=== PATIENT | male | born 1995 | race Caucasian/White ===

== ENCOUNTER 2019-03-10 09:05 | Emergency (ER) | payer OTHER ==
--- NOTE | 2019-03-10 10:16 | RADIOLOGY REPORT (SQ) ---
EXAM DESCRIPTION: SHOULDER LEFT 2 OR MORE VIEWS COMPLETED DATE/TIME: 03/10/2019 10:06 am REASON FOR STUDY: anterior shoulder/chest pain after lifting COMPARISON: None. NUMBER OF VIEWS: Three views. TECHNIQUE: Internal rotation, external rotation, and Y view images acquired of the left shoulder. LIMITATIONS: None. FINDINGS: MINERALIZATION: Normal. BONES: No acute fracture or dislocation. No worrisome bone lesions. JOINTS: No dislocation. VISUALIZED LUNGS AND RIBS: No pneumothorax. No rib fracture. SOFT TISSUES: No radiopaque foreign body. OTHER: No other significant finding. IMPRESSION: NEGATIVE STUDY OF THE LEFT SHOULDER. NO RADIOGRAPHIC EVIDENCE OF ACUTE INJURY. TECHNICAL DOCUMENTATION: JOB ID: [id number] [employer]- All Rights Reserved Reading location - IP/workstation name: [email or web address]
--- NOTE | 2019-03-10 10:42 | ER Document Report ---
HPI - HPI Time Seen by Provider: 03/10/19 09:38 Pain Level: 3 Notes: Patient is an otherwise healthy 23-year-old male presenting to the emergency department with complaints of left shoulder pain radiating into his upper chest. He states the pain started after lifting 300 pounds. He states he was doing bench presses. He reports this is been going on for several days, he has tried taking Tylenol without relief. - MUSCULOSKELETAL Musculoskeletal: REPORTS: Extremity pain - left shoulder/chest Past Medical History - General Information source: Patient - Social History Smoking Status: Never Smoker Frequency of alcohol use: None Drug Abuse: None Family History: Reviewed & Not Pertinent Patient has suicidal ideation: No Patient has homicidal ideation: No - Medical History Medical History: Negative Renal/ Medical History: Denies: Hx Peritoneal Dialysis Surgical Hx: Negative - Immunizations Immunizations up to date: Yes Vertical Provider Document - CONSTITUTIONAL Notes: PHYSICAL EXAMINATION: GENERAL: Well-appearing, well-nourished and in no acute distress. HEAD: Atraumatic, normocephalic. EYES: Pupils equal round extraocular movements intact, conjunctiva are normal. ENT: Nares patent NECK: Normal range of motion LUNGS: No respiratory distress Musculoskeletal: Normal range of motion to bilateral shoulders. Tenderness to palpation over left pectoralis muscles. NEUROLOGICAL: Normal speech, normal gait. PSYCH: Normal mood, normal affect. SKIN: Warm, Dry, normal turgor, no rashes or lesions noted. - INFECTION CONTROL TRAVEL OUTSIDE OF THE [place] IN LAST 30 DAYS: No Course - Re-evaluation Re-evalutation: Shoulder x-ray is negative for any fracture or dislocation. Likely musculoskeletal strain. Patient will be started on course of muscle relaxers and encouraged to take ibuprofen. He will also be given contact information for a sports medicine physician to follow-up with if his symptoms do not improve. Patient verbalizes understanding and agreement with plan. - Vital Signs Vital signs: Temp Pulse Resp BP Pulse Ox 98.2 F 87 17 139/90 H 98 03/10/19 09:21 03/10/19 09:21 03/10/19 09:21 03/10/19 09:21 03/10/19 09:21 Discharge - Discharge Clinical Impression: Pectoralis muscle strain Qualifiers: Encounter type: initial encounter Qualified Code(s): S29.011A - Strain of muscl e and tendon of front wall of thorax, initial encounter Condition: Stable Disposition: HOME, SELF-CARE Additional Instructions: The x-ray today was negative. Please stop taking the muscle relaxer that you have at home called cyclobenzaprine. Start taking ibuprofen and Robaxin as prescribed. Continue to apply warm compresses to the area and/or massage the area with something like Aspercreme. Follow-up with a sports medicine orthopedic doctor. I have given you the name and number of 1 as outlined below. Prescriptions: Ibuprofen [Motrin 800 mg Tablet] 800 mg PO Q8H PRN #30 tab PRN Reason: Methocarbamol [Robaxin 750 mg Tablet] 750 mg PO Q4 #40 tablet Referrals: KATARZYNA WILLS MD [COMMUNITY BASED STAFF] - Follow up as needed
--- NOTE | 2019-03-10 10:51 | EKG REPORT ---
SEVERITY:- NORMAL ECG - SINUS RHYTHM : Confirmed by: Krystle Andrea MD 10-Mar-2019 10:51:03
[2019-03-10 11:14] VITALS: BP 140/89
== END 2019-03-10 11:14 | disposition home or self-care (01) ==
LOC: ER 09:05
DX: S29.011A Strain of muscle and tendon of front wall of thorax, initial encounter (principal); M25.512 Pain in left shoulder; R07.89 Other chest pain; X50.0XXA Overexertion from strenuous movement or load, initial encounter; Y93.B3 Activity, free weights
CPT/HCPCS: 93005; 93010; 99283

== ENCOUNTER 2019-07-07 22:42 | Emergency (ER) | payer OTHER ==
[2019-07-07] MEDS ORDERED: ASPIRIN 81 MG TABLET, CHEWABLE PO ONE (23:21)
[2019-07-08 00:05] LABS: ABSOLUTE EOSINOPHILS # (AUTO) 0.1 10^3/uL (0.0-0.6); ABSOLUTE LYMPHOCYTES (AUTO) 2.9 10^3/uL (0.5-4.7); ABSOLUTE MONOCYTES (AUTO) 0.8 10^3/uL (0.1-1.4); ABSOLUTE NEUT (AUTO) 4.7 10^3/uL (1.7-8.2); BASOPHILS % (AUTO) 0.5 % (0-2); EOSINOPHILS % (AUTO) 1.4 % (0-6); LYMPHOCYTES % (AUTO) 33.8 % (13-45); MEAN CORPUSCULAR HEMOGLOBIN 30.8 pg (27.0-33.4); MEAN CORPUSCULAR HGB CONC 35.8 g/dL (32.0-36.0); MEAN CORPUSCULAR VOLUME 86 fl (80-97); MONOCYTES % (AUTO) 8.9 % (3-13); PLATELET COUNT 367 10^3/uL (150-450); RED BLOOD COUNT 4.88 10^6/uL (4.35-5.55); RED CELL DISTRIBUTION WIDTH 11.9 % (11.5-14.0); SEGMENTED NEUTROPHILS % (AUTO) 55.4 % (42-78); TOTAL CELLS COUNTED % (AUTO) 100 %; WHITE BLOOD COUNT 8.5 10^3/uL (4.0-10.5)
[2019-07-08 00:17] LABS: ALBUMIN 4.7 g/dL (3.5-5.0); ALKALINE PHOSPHATASE 56 U/L (38-126); ANION GAP 10 (5-19); ASPARTATE AMINO TRANSFERASE 35 U/L (17-59); BILIRUBIN,DIRECT 0.1 mg/dL (0.0-0.4); BILIRUBIN,TOTAL 0.3 mg/dL (0.2-1.3); BLOOD UREA NITROGEN 19 mg/dL (7-20); CALCIUM 10.1 mg/dL (8.4-10.2); CARBON DIOXIDE 29 mmol/L (22-30); CHLORIDE 101 mmol/L (98-107); CREATINE KINASE 165 U/L (55-170); GLUCOSE 109 mg/dL (75-110); POTASSIUM 4.1 mmol/L (3.6-5.0); TOTAL PROTEIN 7.7 g/dL (6.3-8.2)
[2019-07-08] MEDS ORDERED: MAG HYDROX/AL HYDROX/SIMETH SUSP 30 ML UDCUP PO ONE (00:22)
[2019-07-08] MEDS ORDERED: PANTOPRAZOLE SODIUM 40 MG TABLET.DR PO ONE (00:22)
[2019-07-08 00:28] LABS: CREATINE KINASE MB 1.25 ng/mL (<4.55)
[2019-07-08 00:29] LABS: TROPONIN I < 0.012 ng/mL
--- NOTE | 2019-07-08 00:34 | ER Document Report ---
ED General - General Chief Complaint: Chest Pain Stated Complaint: CHEST PAIN Time Seen by Provider: 07/08/19 00:06 Primary Care Provider: NITZA DIXON [Primary Care Provider] - Follow up as needed TRAVEL OUTSIDE OF THE [place] IN LAST 30 DAYS: No - HPI Notes: This is a 24-year-old gentleman who presents with a complaint of midsternal burning chest pain. Patient describes sudden onset of sharp pain in his left chest wall was lasted just a few seconds. There was preceded by burning sensation in his mid sternum. Patient states that this type of pain intermittently in the past. He thought he may have been gas pains. The pain was worse when laying supine so he decided to come to the emergency department. Symptoms started about 6 hours ago. He denies any fever or chills. He denies any recent travel. He denies any calf pain. He describes symptoms as mild. He denies any right upper quadrant abdominal pain. - Related Data Allergies/Adverse Reactions: No Known Allergies Allergy (Verified 03/10/19 09:21) Past Medical History - Social History Smoking Status: Never Smoker Chew tobacco use (# tins/day): No Frequency of alcohol use: Rare Drug Abuse: None Family History: Reviewed & Not Pertinent Patient has suicidal ideation: No Patient has homicidal ideation: No Renal/ Medical History: Denies: Hx Peritoneal Dialysis - Immunizations Immunizations up to date: Yes Review of Systems - Review of Systems Constitutional: denies: Fever Cardiovascular: Chest pain. denies: Heart racing, Dizziness Gastrointestinal: denies: Abdominal pain, Diarrhea, Nausea, Vomiting Neurological/Psychological: denies: Headaches -: Yes All other systems reviewed and negative Physical Exam - Vital signs Vitals: Temp Pulse Resp BP Pulse Ox 98.6 F 94 16 162/93 H 100 07/07/19 22:57 07/07/19 22:57 07/07/19 22:57 07/07/19 22:57 07/07/19 22:57 - General General appearance: Appears well, Alert - Respiratory Respiratory status: No respiratory distress Chest status: Nontender Breath sounds: Normal Chest palpation: Normal, Other - There is slight subxiphoid tenderness to palpation. - Cardiovascular Rhythm: Regular Heart sounds: Normal auscultation Murmur: No - Abdominal Inspection: Normal Distension: No distension Bowel sounds: Normal Tenderness: Nontender Organomegaly: No organomegaly - Extremities General upper extremity: Normal inspection, Nontender, Normal color, Normal ROM, Normal temperature General lower extremity: Normal inspection, Nontender, Normal color, Normal ROM, Normal temperature, Normal weight bearing. No: Estrellita's sign - Neurological Neuro grossly intact: Yes Cognition: Normal Orientation: AAOx4 Trail Coma Scale Eye Opening: Spontaneous Trail Coma Scale Verbal: Oriented Trail Coma Scale Motor: Obeys Commands Joy Coma Scale Total: 15 Speech: Normal Motor strength normal: LUE, RUE, LLE, RLE Sensory: Normal - Psychological Associated symptoms: Normal affect, Normal mood - Skin Skin Temperature: Warm Skin Moisture: Dry Skin Color: Normal Course - Re-evaluation Re-evalutation: 07/08/19 00:33 Differential diagnosis includes GERD versus atypical chest pain versus gastritis. There is no clinical suspicion for acute coronary syndrome at this point 4-year-old with typical pain greater than 5 hours. There is no clinical suspicion for pulmonary embolus. EKG shows normal sinus rhythm at 78 bpm. Normal axis. Normal intervals. Normal EKG. 07/08/19 04:24 Patient reevaluated. He is doing well. Repeat troponin is negative. Labs and imaging reviewed and discussed with patient. He is stable for discharge. - Vital Signs Vital signs: Temp Pulse Resp BP Pulse Ox 98.6 F 94 16 162/93 H 98 07/07/19 22:57 07/07/19 22:57 07/07/19 22:57 07/07/19 22:57 07/07/19 23:54 - Laboratory Result Diagrams: 07/07/19 23:48 07/07/19 23:48 - Diagnostic Test Radiology reviewed: Reports reviewed Discharge - Discharge Clinical Impression: Atypical chest pain GERD (gastroesophageal reflux disease) Qualifiers: Esophagitis presence: esophagitis presence not specified Qualified Code(s): K21.9 - Gastro-esophageal reflux disease without esophagitis Condition: Stable Disposition: HOME, SELF-CARE Instructions: Chest Pain of Unclear Cause ([facility]), Reflux Disease (GERD) ([facility]) Prescriptions: Esomeprazole Mag Trihydrate [Nexium] 40 mg PO DAILY 30 Days #30 capsule. Referrals: [facility] [Primary Care Provider] - Follow up in 3-5 days
--- NOTE | 2019-07-08 01:11 | RADIOLOGY REPORT (SQ) ---
EXAM DESCRIPTION: XR CHEST 2 VIEWS COMPLETED DATE/TME: 07/08/2019 00:21 CLINICAL HISTORY: chest pain COMPARISON: None. FINDINGS: Frontal and lateral views of the chest. Cardiomediastinal silhouette: Normal size and contour. Lungs: No consolidation, pneumothorax, or pleural effusion. Bones: No acute osseous abnormality. Leads overlie the chest. Upper abdomen: No abnormality identified. IMPRESSION: 1. No acute pulmonary process identified.
[2019-07-08 04:42] VITALS: BP 129/82
--- NOTE | 2019-07-08 23:17 | EKG REPORT ---
SEVERITY:- BORDERLINE ECG - SINUS RHYTHM BORDERLINE T WAVE ABNORMALITIES : Confirmed by: Clarke Drummond 08-Jul-2019 23:17:07
== END 2019-07-08 04:42 | disposition home or self-care (01) ==
LOC: ER 22:42
DX: K21.9 Gastro-esophageal reflux disease without esophagitis (principal); R07.89 Other chest pain
CPT/HCPCS: 93005; 99285; 36415; 82553; 82550; 85025; 80053; 84484; 71046; 93010; J3490